=== PATIENT | male | born 1965 | race Caucasian/White ===

== ENCOUNTER 2019-11-24 14:51 | Emergency (ER) | payer MEDICAID, SELFPAY ==
--- NOTE | ~2019-11-24 | CT_ITS ---
EXAMINATION: CT abdomen pelvis wo con EXAM DATE: 11/24/2019 16:46 INDICATION: Hematuria, dysuria, bilateral low back pain. TECHNIQUE: Spiral CT of the abdomen and pelvis was performed without contrast. Axial, coronal and sag ittal images were reviewed. The dose-length product (DLP) for this examination was 395.40 mGy-cm. T he exposure was tailored according to patient size (auto mA exposure control), and iterative reconstr uction (ASIR) was used as additional dose reduction technique. There is no prior study for compariso n. FINDINGS: There is bladder, pelvic mass. Suspect significant posterior bladder wall thickening which could be transitional cell cancer. Masslike opacity is filling the bladder lumen measuring about 12 c m. Uncertain how much of this is soft tissue versus large blood clot. Prostate appears within normal size. There is severe chronic right-sided hydronephrosis, severe renal cortical thinning indicating l yobani-standing obstruction. On the left side there is moderate hydroureteronephrosis, with stones lined in the distal aspect of the left ureter which appear to be in the dependent aspect, appear to be non obstructing at present, conglomerate of stones measuring 1.6 cm. There are larger left inferior calyc eal stones. Recommend consult. The liver, spleen, adrenal glands and pancreas are unremarkable. Gallbladder is unremarkable. No bi liary obstruction. 2 nodules of soft tissue adjacent to the rectum which could be metastatic lymph no jesusita, largest measuring 1.2 x 0.9 cm. There is left external iliac soft tissue likely pathologically e nlarged lymph node measuring 3.5 x 1.9 cm. The appendix is normal. The stomach and small bowel are unremarkable. There is expected amount of c olonic stool. No free intraperitoneal gas. Trace pericardial effusion. The lung bases are unrema rkable. There are no osteoblastic or osteolytic lesions identified. IMPRESSION: 1. Soft tissue mass and/or blood clot filling the bladder, and suspected underlying bladder wall thi ckening, TCC. 2. Bilateral hydronephrosis probably from bladder mass, with severe chronic right-sided hydronephros is and renal cortical thinning. 3. Moderate left hydronephrosis, left ureteral and calyceal stones which are probably not obstructin g (hydronephrosis probably from bladder mass). 4. 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 Reviewed, dictated and finalized at location A. IMPRESSION: 1. Soft tissue mass and/or blood clot filling the bladder, and suspected under lying bladder wall thickening, TCC. 2. Bilateral hydronephrosis probably from bladder mass, with severe chronic ri ght-sided hydronephrosis and renal cortical thinning. 3. Moderate left hydronephrosis, left ureteral and calyceal stones which are p robably not obstructing (hydronephrosis probably from bladder mass). 4. 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
[2019-11-24 14:59] VITALS: BP 139/96; PULSE 139; RESP 20; TEMP 37.1; O2SAT 99
[2019-11-24 15:25] LABS: Basophils Percent Auto 0.3 % (0.2-1.2); Eosinophils Percent Auto 0.1 % (0-4.4); Hematocrit 34.1 % (42.0-52.0); Hemoglobin 10.2 g/dL (14.0-18.0); Immature Granulocyte Absolute 0.06 K/mm3 (0.00-0.031); Immature Granulocyte Percent A 0.4 % (0-0.5); Lymphocytes Absolute Auto 0.74 K/mm3 (0.9-3.2); Lymphocytes Percent Auto 5.3 % (18.3-44.2); Mean Corpuscular HGB Conc 29.9 g/dl (32-36); Mean Corpuscular Hemoglobin 19.4 pg (26-34); Mean Corpuscular Volume 64.7 fl (80-100); Mean Platelet Volume 9.1 fl (7.4-10.4); Monocytes Absolute Auto 1.2 K/mm3 (0.1-0.6); Monocytes Percent Auto 8.7 % (2.6-8.5); Neutrophils Absolute Auto 11.9 K/mm3 (1.3-6.7); Neutrophils Percent Auto 85.2 % (45.5-73.1); Platelet Count Result 509 k/mm3 (150-375); Red Blood Count 5.27 M/mm3 (4.6-6.20); Red Cell Distribution Width 19.5 % (11.5-14.5)
[2019-11-24 15:36] LABS: Alanine Aminotransferase 34 U/L (4-50); Albumin Level 3.6 g/dL (3.5-5.1); Alkaline Phosphatase 94 U/L (38-126); Aspartate Amino Transferase 33 U/L (17-59); Bilirubin,Total 0.5 mg/dL (0.2-1.3); Blood Urea Nitrogen 55 mg/dL (9-20); Calcium 9.1 mg/dL (8.4-10.2); Carbon Dioxide 20 mmol/L (22-30); Chloride 95 mmol/L (98-107); Estimated CRCL calculation 24 ml/min; Estimated Glomerular Filt Rate 20; Glucose 149 mg/dL (75-110); Lipase 89 U/L (23-300); Potassium 4.1 mmol/L (3.4-5.0); Sodium 127 mmol/L (137-145)
--- NOTE | 2019-11-24 15:45 | ED.GENADULT ---
HPI - General Adult General Chief complaint: Urogenital-Male Stated complaint: pissing blood Time Seen by Provider: 11/24/19 15:43 Source: patient Mode of arrival: ambulatory Limitations: no limitations History of Present Illness HPI narrative: Patient is a 54-year-old male with a history of psoriasis who presents for evaluation of difficulty with urination, hematuria and painful urination. Patient reports over the past several weeks he has had a 40 pound unintentional weight loss. He denies fever or chills. He reports lower abdominal pain which is severe in nature in the suprapubic area without flank pain. He reports a history of psoriasis which is chronic for him, no other rashes. He reports a history of cocaine use in youth, but no history of recent IV drug abuse. Patient does not have any new sexual partners. No history of sexually transmitted infections. He has no cancer history. Patient does not follow with any primary care physician. He used to reside in [place] before the COVID pandemic but due to increased [place] numbers in [place] patient moved down to [place] to live with his parents. Patient denies testicular pain. No penile discharge. Related Data Allergies Allergy/AdvReac Type Severity Reaction Status Date / Time No Known Allergies Allergy Verified 11/24/19 17:04 Review of Systems Review of Systems: Narrative: CONSTITUTIONAL: Denies fever CARDIOVASCULAR: Denies chest pain RESPIRATORY: Denies cough or dyspnea. GASTROINTESTINAL: Reports lower abdominal pain, reports constipation : Reports dysuria, hematuria, hesitancy SKIN: Denies rash MUSCULOSKELETAL: Denies back pain NEUROLOGIC: Denies headache PMFSH Past Medical History Medical History Psoriasis Surgical History Surgical History (Updated 11/24/19 @ 16:28 by Tiffanie Grant MD) H/O right wrist surgery Social History Social History (Updated 11/24/19 @ 16:29 by Tiffanie Grant MD) Smoking status: Current every day smoker Tobacco type: cigarettes Alcohol intake: former Substance use: former Substance use type: crack/cocaine Gender identity (if verbalized by the patient): Male Exam Narrative: Exam Narrative: GENERAL: Awake, alert, conversant, thin HEAD: Normocephalic, atraumatic. EYES: PERRLA and EOMI. ENT: Nares clear, no rhinorrhea or epistaxis. Mucous membranes dry NECK: Supple. CHEST: No respiratory distress, breathing even and non labored HEART: Tachycardic rate, sinus rhythm ABDOMEN:Non distended, tender in suprapubic area, positive guarding, no hernia, no mass, no rebound, nonrigid EXTREMITIES: Normal range of motion. No edema. SKIN: Warm, dry, plaque psoriasis to elbows bilateral lower legs NEURO:No focal deficits. Alert and oriented x3 Course Vital Signs Vital signs: Vital Signs Temperature 37.1 C 11/24/19 14:59 Pulse Rate 139 H 11/24/19 14:59 Respiratory Rate 20 11/24/19 14:59 Blood Pressure 139/96 H 11/24/19 14:59 Pulse Oximetry 99 11/24/19 14:59 Temperature 36.9 C 11/24/19 17:01 Pulse Rate 128 H 11/24/19 17:01 Respiratory Rate 18 11/24/19 17:01 Blood Pressure 145/71 H 11/24/19 17:01 Pulse Oximetry 96 11/24/19 17:01 Transfer Transfered to: [facility] Transportation: BLS Transfer rationale: Specialties available Accepting physician: Dr. Jaiden MD Medical Decision Making MDM Narrative Medical decision making narrative: Patient is a 54-year-old male who presented for evaluation of unintended weight loss, difficulty with urination, hematuria. IV access obtained and labs were drawn. Patient was found to have a large bladder mass with some local involvement of lymph nodes concerning for metastatic process, and this bladder mass seems to be causing acute renal failure with elevation in creatinine. No hyperkalemia. No concurrent UTI. No cough, congestion, fever type symptoms. We did place a Greer in the emerg
[2019-11-24 15:46] LABS: Add Urine Microscopic? YES; Bilirubin Urine Negative (Negative); Blood Urine 3+ (Negative); Glucose Urine UA 1+ mg/dL (Negative); Ketones Urine 1+ mg/dL (Negative); Leukocyte Esterase Ur Negative LEU/UL (Negative); Nitrate Urine Negative (Negative); Protein Urine 2+ mg/dL (Negative); Urobilinogen Urine Negative mg/dL (<2.0)
[2019-11-24 15:52] LABS: Color Urine Red (Yellow)
[2019-11-24 15:53] LABS: Appearance Urine Cloudy (Clear); RBC Urine >75 /hpf (0-2); WBC Urine None seen /hpf (0-3)
[2019-11-24 15:54] LABS: Bacteria Urine None seen /hpf; Mucus Urine None seen /lpf; Squamous Epithelial Cell Urine None seen /hpf (Few)
[2019-11-24 16:05] LABS: Hypochromasia 1+ (NORMAL); Platelet Estimate Increased (Adequate)
[2019-11-24 16:06] LABS: Anisocytosis 2+ (NORMAL)
--- NOTE | 2019-11-24 16:26 | ECG_ITS ---
Measurements Intervals [place] Rate: 99 P: 64 OK: 106 QRS: 77 QRSD: 90 T: 63 QT: 340 QTc: 437 Interpretive Statements SINUS RHYTHM POSSIBLE LEFT ATRIAL ENLARGEMENT BASELINE ARTIFACT- I, II, AVR, AVL, V4-V6 BORDERLINE ECG Electronically Signed On 11-25-2019 7:22:55 CDT by Jose Williamson D.O.
[2019-11-24] MEDS: SODIUM CHLORIDE 0.9% IV 1,000 ML 999 ML IV CONT ×2 (17:00→17:01)
[2019-11-24 17:01] VITALS: BP 145/71; PULSE 128; RESP 18; TEMP 36.9; O2SAT 96
[2019-11-24 17:13] LABS: Lactic Acid Reflex 1.1 mmol/L (0.7-2.1)
[2019-11-24 17:54] LABS: HIV 1/2 Ab P24 Ag Result Negative (Negative)
[2019-11-24 20:07] VITALS: BP 133/87; PULSE 112; RESP 16; TEMP 36.6; O2SAT 100
[2019-11-24] MEDS: MORPHINE SULFATE 4 MG/ML INJ IV PUSH (20:08)
== END 2019-11-24 20:17 | disposition short-term general hospital (02) ==
PROVIDERS: Emergency Provider Emergency Medicine
DX: R33.9 Retention of urine, unspecified (principal); N32.9 Bladder disorder, unspecified; N17.9 Acute kidney failure, unspecified
CPT/HCPCS: 36415; 51702; 74176; 80053; 81001; 83605; 83690; 85025; 86703; 93005; 96361; 96374; 99285; G0432; J2270; J7030